=== PATIENT | male | born 1965 | race Caucasian/White ===

== ENCOUNTER 2025-03-21 01:54 | Emergency (ER) | payer BC ==
[~2025-03-21] VITALS: Ht 182.9 cm; Wt 83.9 kg
[~2025-03-21 01:54] MED LIST: ASTHMA MEDS; LIPITOR; [UNRECOGNIZED DRUG - OTHER]
[2025-03-21 02:49] LABS: PLATELET COUNT (AUTO) 240 K/uL (152-348); RED BLOOD CELL COUNT(AUTO) 5.15 MIL/uL (4.06-5.63); RED CELL DISTRIBUTION WIDTH 14.9 % (12.1-16.2); WHITE BLOOD COUNT (AUTO) 10.9 K/uL (3.6-10.2)
[2025-03-21 02:53] LABS: CREATININE 1.0 mg/dL (0.6-1.3); SODIUM SERUM 141.0 mmol/L (136-145); UREA NITROGEN, BLOOD 17.0 mg/dL (7-18)
[2025-03-21 02:59] LABS: ASPARTATE AMINOTRANSFERASE 10.0 U/L (15-37); TOTAL PROTEIN, SERUM 6.6 g/dL (6.4-8.2)
[2025-03-21 03:32] LABS: *BLOOD, URINE 1+ (NEGATIVE); *CLARITY,URINE CLEAR (CLEAR); *COLOR,URINE YELLOW (YELLOW); *KETONES,URINE 1+ (NEGATIVE); *PROTEIN,URINE NEGATIVE (NEGATIVE); *UROBILINOGEN,URINE 0.2 E.U./dl (NORMAL); LEUKOCYTE ESTERASE ,URINE NEGATIVE (NEGATIVE); NITRITE, URINE NEGATIVE (NEGATIVE); UGLUCOSE NEGATIVE (NEGATIVE)
[2025-03-21 03:33] LABS: *BILIRUBIN,URIN NEGATIVE (NEGATIVE)
[2025-03-21 03:40] LABS: SQUAMOUS EPITHELIAL CELL,UR FEW /HPF (NONE SEEN)
[2025-03-21] MEDS ORDERED: KETOROLAC TROMETHAMINE 30 MG INJ ONE (04:03)
[2025-03-21] MEDS: KETOROLAC TROMETHAMINE 30 MG INJ IM ONE (04:05)
[2025-03-21 05:54] VITALS: BP 138/76
[2025-03-21 05:56] VITALS: BP 138/76; TEMP 97.5; O2SAT 100
== END 2025-03-21 05:58 | disposition home or self-care (01) ==
LOC: ER 02:26
DX: R10.9 Unspecified abdominal pain (principal); K59.00 Constipation, unspecified; R03.0 Elevated blood-pressure reading, without diagnosis of hypertension; J43.2 Centrilobular emphysema; I51.9 Heart disease, unspecified; K76.89 Other specified diseases of liver; Z88.7 Allergy status to serum and vaccine
CPT/HCPCS: 99285; 74176; 80076; 80048; 81001; 83690; 85025; 36415; 96372; J1885; A4606; A4663